=== PATIENT | female | born 1935 | race Caucasian/White ===

== ENCOUNTER 2017-02-07 06:57 | Inpatient (IN) | payer OTHER ==
[~2017-02-07] VITALS: Ht 147.3 cm; Wt 41.5 kg
[~2017-02-07 06:57] MED LIST: BLOOD THINNER PO; CIPR250T27 PO; CLOP75TA PO; METF500T4 PO
[2017-02-07] MEDS ORDERED: SODIUM CHLORIDE 0.9% 1,000 ML IV ONE (07:19)
[2017-02-07] MEDS ORDERED: LORazepam 2 MG/ML, 1ML IVPush ONE (07:30)
[2017-02-07] MEDS ORDERED: SODIUM CHLORIDE FLUSH 10ML SYR IVF ONE (07:30)
[2017-02-07 08:47] LABS: DIFF TOTAL CELLS COUNTED 100 CELL DIFF
[2017-02-07 08:48] LABS: VERIFY COUNTS? YES
[2017-02-07 08:53] LABS: ASPARTATE AMINO TRANSFERASE 14 U/L (15-37); BLOOD UREA NITROGEN 69 mg/dL (7-18); IS PT STATUS REG ER OR PRE ER? YES
[2017-02-07] MEDS ORDERED: OMNIPAQUE 350 MG/ML, 75ML BOTTLE ONE (09:23)
[2017-02-07] MEDS ORDERED: CEFTRIAXONE PMX 1GM/50ML 50 ML ONE (09:27)
[2017-02-07] MEDS ORDERED: CEFTRIAXONE PMX 1GM/50ML 50 ML IV ONE (09:30)
[2017-02-07] MEDS ORDERED: MORPHINE SULFATE 4 MG/ML, 1ML IVPush PRN (11:30)
[2017-02-07] MEDS ORDERED: PROMETHAZINE 25 MG/ML, 1ML IM PRN (11:30)
[2017-02-07] MEDS ORDERED: FAMOTIDINE 20 MG/2 ML IV SCH (11:30)
[2017-02-07] MEDS ORDERED: LORazepam 2 MG/ML, 1ML IVPush PRN (11:30)
[2017-02-07] MEDS ORDERED: ONDANSETRON 2MG/ML, 2ML IVP PRN (11:30)
[2017-02-07] MEDS ORDERED: NS + 20MEQ KCL 1,000 ML IV ONE (12:49)
[2017-02-07] MEDS ORDERED: FAMOTIDINE 20 MG/2 ML ONE (12:49)
[2017-02-07] MEDS: NS + 20MEQ KCL 1,000 ML IV SCH ×2 (13:00→22:25)
[2017-02-07] MEDS: CEFTRIAXONE PMX 1GM/50ML 50 ML IV SCH (15:20)
[2017-02-07 16:27] VITALS: BP 165/85
[2017-02-07] MEDS: FAMOTIDINE 20 MG/2 ML IV SCH ×2 (16:43→21:00)
[2017-02-07] MEDS: INSULIN ASPART 100 UNITS/ML, PEN SQ-INSULIN SCH ×2 (16:46→21:00)
[2017-02-07 16:49] LABS: IS PT STATUS REG ER OR PRE ER? NO
[2017-02-07 19:22] VITALS: BP 163/93
[2017-02-07 22:01] LABS: IS PT STATUS REG ER OR PRE ER? NO
[2017-02-07 22:12] LABS: BLOOD UREA NITROGEN 54 mg/dL (7-18)
[2017-02-08 01:28] VITALS: BP 171/90
[2017-02-08 04:59] LABS: BLOOD UREA NITROGEN 50 mg/dL (7-18)
[2017-02-08] MEDS: INSULIN ASPART 100 UNITS/ML, PEN SQ-INSULIN SCH ×4 (07:00→22:54)
[2017-02-08 08:53] VITALS: BP 173/82
[2017-02-08] MEDS: NS + 20MEQ KCL 1,000 ML IV SCH ×2 (10:08→22:53)
[2017-02-08] MEDS: CEFTRIAXONE PMX 1GM/50ML 50 ML IV SCH (12:41)
[2017-02-08 14:37] VITALS: BP 175/82
[2017-02-08] MEDS ORDERED: LIDOCAINE GEL 2%, 5ML ONE ×2 (15:38→16:50)
[2017-02-08] MEDS ORDERED: BENZOCAINE 20% SPRAY 0.5ML ONE ×2 (15:38→16:50)
[2017-02-08 19:24] VITALS: BP 165/84
[2017-02-08] MEDS: FAMOTIDINE 20 MG/2 ML IV SCH (22:53)
[2017-02-09 01:20] VITALS: BP 174/88
[2017-02-09] MEDS: INSULIN ASPART 100 UNITS/ML, PEN SQ-INSULIN SCH ×4 (04:00→22:00)
[2017-02-09 05:56] LABS: BLOOD UREA NITROGEN 25 mg/dL (7-18)
[2017-02-09 08:31] VITALS: BP 155/73
[2017-02-09] MEDS: NS + 20MEQ KCL 1,000 ML IV SCH ×2 (09:22→22:13)
[2017-02-09] MEDS ORDERED: POTASSIUM CHLORIDE 20 MEQ in SODIUM CHLORIDE 0.9% 250 ML IV ONE (10:00)
[2017-02-09] MEDS: CEFTRIAXONE PMX 1GM/50ML 50 ML IV SCH (11:32)
[2017-02-09 12:54] VITALS: BP 186/77
[2017-02-09 13:09] VITALS: BP 179/86
[2017-02-09] MEDS ORDERED: ENALAPRILAT 1.25 MG/ML, 2ML IV PRN (16:00)
[2017-02-09 19:14] VITALS: BP 166/78
[2017-02-09] MEDS: FAMOTIDINE 20 MG/2 ML IV SCH (22:12)
[2017-02-09] MEDS: HEPARIN 5,000 UNITS/ML, 1ML SQ SCH (22:12)
[2017-02-10] MEDS ORDERED: BISACODYL 10 MG SUPP PR SCH
[2017-02-10 01:49] VITALS: BP 157/76
[2017-02-10] MEDS: INSULIN ASPART 100 UNITS/ML, PEN SQ-INSULIN SCH ×4 (04:00→22:14)
[2017-02-10 05:51] LABS: BLOOD UREA NITROGEN 19 mg/dL (7-18)
[2017-02-10 06:55] VITALS: BP 161/72
[2017-02-10] MEDS ORDERED: ERYTHROMYCIN 250 MG in SODIUM CHLORIDE 0.9% 100 ML IVPB SCH (09:00)
[2017-02-10] MEDS: NS + 20MEQ KCL 1,000 ML IV SCH (09:09)
[2017-02-10] MEDS: HEPARIN 5,000 UNITS/ML, 1ML SQ SCH ×2 (10:18→21:40)
[2017-02-10] MEDS: METOCLOPRAMIDE 5 MG/ML, 2ML IV SCH ×3 (10:19→21:41)
[2017-02-10] MEDS ORDERED: POTASSIUM PHOSPHATE 22 MEQ in SODIUM CHLORIDE 0.9% 500 ML IV ONE (11:30)
[2017-02-10] MEDS ORDERED: MAGNESIUM SULFATE PMX 2GM/50ML 50 ML IV ONE (11:30)
[2017-02-10] MEDS ORDERED: NS + 20MEQ KCL 1,000 ML IV SCH (12:00)
[2017-02-10] MEDS: CEFTRIAXONE PMX 1GM/50ML 50 ML IV SCH (12:59)
[2017-02-10 14:15] VITALS: BP 153/77
[2017-02-10 20:05] VITALS: BP 138/72
[2017-02-10] MEDS: FAMOTIDINE 20 MG/2 ML IV SCH (21:40)
[2017-02-11 01:55] VITALS: BP 140/70
[2017-02-11] MEDS: METOCLOPRAMIDE 5 MG/ML, 2ML IV SCH ×3 (03:17→15:57)
[2017-02-11] MEDS: INSULIN ASPART 100 UNITS/ML, PEN SQ-INSULIN SCH ×4 (04:26→22:05)
[2017-02-11 05:51] LABS: BLOOD UREA NITROGEN 18 mg/dL (7-18)
[2017-02-11 07:45] VITALS: BP 179/84
[2017-02-11] MEDS: HEPARIN 5,000 UNITS/ML, 1ML SQ SCH ×2 (09:51→21:26)
[2017-02-11] MEDS: POLYETHYLENE GLYCOL 17 GM PACKET PO SCH (09:52)
[2017-02-11] MEDS: CEFTRIAXONE PMX 1GM/50ML 50 ML IV SCH (12:10)
[2017-02-11 14:33] VITALS: BP 164/82
[2017-02-11 19:38] VITALS: BP 144/73
[2017-02-11] MEDS ORDERED: METOCLOPRAMIDE 5 MG/ML, 2ML IV PRN (21:00)
[2017-02-11] MEDS: FAMOTIDINE 20 MG/2 ML IV SCH (21:26)
[2017-02-12 02:10] VITALS: BP 114/67
[2017-02-12 07:29] VITALS: BP 141/83
[2017-02-12] MEDS: HEPARIN 5,000 UNITS/ML, 1ML SQ SCH ×2 (08:14→21:05)
[2017-02-12] MEDS: POLYETHYLENE GLYCOL 17 GM PACKET PO SCH (08:14)
[2017-02-12] MEDS: INSULIN ASPART 100 UNITS/ML, PEN SQ-INSULIN SCH ×4 (08:15→21:06)
[2017-02-12] MEDS ORDERED: MIDAZOLAM 1 MG/ML, 2ML ONE (09:45)
[2017-02-12] MEDS ORDERED: FENTANYL PF 250 MCG/5ML ONE (09:45)
[2017-02-12] MEDS: CEFTRIAXONE PMX 1GM/50ML 50 ML IV SCH (11:49)
[2017-02-12 13:44] VITALS: BP 131/79
[2017-02-12 19:44] VITALS: BP 132/75
[2017-02-12] MEDS: FAMOTIDINE 20 MG/2 ML IV SCH (21:05)
[2017-02-13 01:17] VITALS: BP 163/92
[2017-02-13 06:50] VITALS: BP 160/80
[2017-02-13] MEDS: INSULIN ASPART 100 UNITS/ML, PEN SQ-INSULIN SCH ×4 (07:00→20:04)
[2017-02-13] MEDS: POLYETHYLENE GLYCOL 17 GM PACKET PO SCH (08:12)
[2017-02-13 12:27] VITALS: BP 109/72
[2017-02-13] MEDS: HEPARIN 5,000 UNITS/ML, 1ML SQ SCH (13:59)
[2017-02-13] MEDS: SODIUM CHLORIDE 0.9% 1,000 ML IV SCH (18:11)
[2017-02-13 19:03] VITALS: BP 167/72
[2017-02-13] MEDS: FAMOTIDINE 20 MG/2 ML IV SCH (20:04)
[2017-02-14 02:03] VITALS: BP 154/73
[2017-02-14] MEDS: HEPARIN 5,000 UNITS/ML, 1ML SQ SCH ×2 (02:20→14:00)
[2017-02-14] MEDS: SODIUM CHLORIDE 0.9% 1,000 ML IV SCH ×2 (05:00→20:04)
[2017-02-14 06:41] VITALS: BP 127/65
[2017-02-14] MEDS: INSULIN ASPART 100 UNITS/ML, PEN SQ-INSULIN SCH ×4 (07:00→20:04)
[2017-02-14] MEDS: POLYETHYLENE GLYCOL 17 GM PACKET PO SCH (08:26)
[2017-02-14 13:15] VITALS: BP 133/77
[2017-02-14 18:48] VITALS: BP 127/70
[2017-02-14] MEDS: FAMOTIDINE 20 MG/2 ML IV SCH (20:04)
[2017-02-15 03:16] VITALS: BP 119/63
[2017-02-15] MEDS: HEPARIN 5,000 UNITS/ML, 1ML SQ SCH ×2 (04:54→17:00)
[2017-02-15 06:07] LABS: BLOOD UREA NITROGEN 14 mg/dL (7-18)
[2017-02-15] MEDS: INSULIN ASPART 100 UNITS/ML, PEN SQ-INSULIN SCH ×4 (07:00→20:27)
[2017-02-15 07:10] VITALS: BP 126/67
[2017-02-15] MEDS: POLYETHYLENE GLYCOL 17 GM PACKET PO SCH (09:00)
[2017-02-15] MEDS ORDERED: POTASSIUM CHLORIDE 40 MEQ in SODIUM CHLORIDE 0.9% 500 ML IV ONE (09:00)
[2017-02-15] MEDS ORDERED: MAGNESIUM SULFATE PMX 4GM/100M 100 ML IV ONE (09:00)
[2017-02-15] MEDS: SODIUM CHLORIDE 0.9% 1,000 ML IV SCH ×2 (09:09→20:27)
[2017-02-15 15:05] VITALS: BP 119/74
[2017-02-15 19:20] VITALS: BP 129/64
[2017-02-15] MEDS: FAMOTIDINE 20 MG/2 ML IV SCH (20:27)
[2017-02-16 01:37] VITALS: BP 133/67
[2017-02-16] MEDS: HEPARIN 5,000 UNITS/ML, 1ML SQ SCH (04:54)
[2017-02-16 06:05] LABS: BLOOD UREA NITROGEN 12 mg/dL (7-18)
[2017-02-16 06:40] VITALS: BP 138/67
[2017-02-16] MEDS: INSULIN ASPART 100 UNITS/ML, PEN SQ-INSULIN SCH ×2 (07:00→11:38)
[2017-02-16] MEDS: POLYETHYLENE GLYCOL 17 GM PACKET PO SCH (07:58)
[2017-02-16 14:35] VITALS: BP 103/56
== END 2017-02-16 15:29 | DRG 388 ==
LOC: ED 08:32 → EDIP 09:54 → 3NE 14:46
PROVIDERS: ADMIT Internal Medicine; ATTEND Internal Medicine
PROC: 0T9B70Z Drainage of Bladder with Drainage Device, Via Natural or Artificial Opening (ICD-10-PCS; principal; 2017-02-07)
PROC: 0DH67UZ Insertion of Feeding Device into Stomach, Via Natural or Artificial Opening (ICD-10-PCS; 2017-02-08)
DX: K56.60 Unspecified intestinal obstruction (principal); N17.0 Acute kidney failure with tubular necrosis; G93.41 Metabolic encephalopathy; E87.2 Acidosis; Z68.1 Body mass index [BMI] 19.9 or less, adult; R64 Cachexia; N39.0 Urinary tract infection, site not specified; F05 Delirium due to known physiological condition; I24.8 Other forms of acute ischemic heart disease; J68.0 Bronchitis and pneumonitis due to chemicals, gases, fumes and vapors; B96.20 Unspecified Escherichia coli [E. coli] as the cause of diseases classified elsewhere; E11.9 Type 2 diabetes mellitus without complications; E86.0 Dehydration; E87.6 Hypokalemia; F03.90 Unspecified dementia, unspecified severity, without behavioral disturbance, psychotic disturbance, mood disturbance, and anxiety; R47.81 Slurred speech; Z66 Do not resuscitate; Z86.79 Personal history of other diseases of the circulatory system; Z87.891 Personal history of nicotine dependence; Z88.0 Allergy status to penicillin; Z79.84 Long term (current) use of oral hypoglycemic drugs; Z79.899 Other long term (current) drug therapy
CPT/HCPCS: 36415; 71010; 74000; 74177; 74230; 74340; 80048; 80053; 81001; 82962; 83605; 83690; 83735; 84100; 84484; 85025; 87040; 87077; 87086; 87186; 93005; 96361; 96365; 96366; J0696; J1364; J1644; J1815; J2250; J2405; J3010; J3480; Q9967; J2765; J3475; J7030; J7040; J7050; S0028

== ENCOUNTER 2018-05-25 10:05 | Inpatient (IN) | payer MEDICARE, MEDICAID ==
[~2018-05-25] VITALS: Ht 147.3 cm; Wt 40.6 kg
[~2018-05-25 10:05] MED LIST changes: -METF500T4 PO; +METF500T5 PO
[2018-05-25] MEDS ORDERED: SODIUM CHLORIDE 0.9% 1,000 ML IV ONE (10:16)
[2018-05-25] MEDS ORDERED: SODIUM CHLORIDE 0.9% 1,000ML IVBOLUS ONE ×2 (10:30→22:00)
[2018-05-25] MEDS ORDERED: SODIUM CHLORIDE FLUSH 10ML SYR IVF ONE (10:30)
[2018-05-25] MEDS: PROPOFOL 100 ML IV PRN ×2 (10:38→21:34)
[2018-05-25 10:49] LABS: MEAN CORPUSCULAR HEMOGLOBIN 28.1 pg (27.0-34.8); MEAN CORPUSCULAR HGB CONC 32.9 g/dL (32.4-35.8); MEAN CORPUSCULAR VOLUME 85.4 fL (80-100); MEAN PLATELET VOLUME 8.9 fL (7.4-10.4); PLATELET COUNT 585 x10^3/uL (130-400); RED BLOOD COUNT 3.05 x10^6/uL (3.82-5.3); RED CELL DISTRIBUTION WIDTH 15.3 % (9.6-15.2)
[2018-05-25 10:54] LABS: ALANINE AMINOTRANSFERASE 13 U/L (12-78); ALBUMIN 2.7 g/dL (3.4-5.0); ANION GAP 14 mmol/L (5-15); CALCIUM 8.3 mg/dL (8.5-10.1); CHLORIDE 107 mmol/L (98-107)
[2018-05-25 10:59] LABS: ALKALINE PHOSPHATASE 92 U/L (45-117); BILIRUBIN,TOTAL 0.3 mg/dL (0.2-1.0); CREATININE 0.89 mg/dL (0.55-1.02); TOTAL PROTEIN 6.2 g/dL (6.4-8.2)
[2018-05-25] MEDS ORDERED: BISACODYL 10 MG SUPP PR PRN ×2 (11:00→12:00)
[2018-05-25] MEDS ORDERED: LIDOCAINE-MPF 1%, 2ML ENDO PRN (11:00)
[2018-05-25] MEDS ORDERED: SENNA/DOCUSATE TABLET NG PRN (11:00)
[2018-05-25] MEDS ORDERED: LACTULOSE 20 GM/30 ML UDC NG PRN (11:00)
[2018-05-25] MEDS ORDERED: PLEASE ENTER HEIGHT AND WEIGHT MC SCH (11:00)
[2018-05-25] MEDS ORDERED: SENNOSIDES 8.8 MG/5 ML ORAL SOL NG PRN (11:00)
[2018-05-25] MEDS ORDERED: PHARMACY MAY ADJ FOR RENAL FX MC SCH (11:00)
[2018-05-25 11:26] LABS: MD YES
[2018-05-25 11:27] LABS: BANDS%(MANUAL) 6 % (0-7); MONOS#(MANUAL) 1.49 x10^3/uL (0.3-2.7); MONOS% (MANUAL) 9 % (2-9)
[2018-05-25 11:28] LABS: <PLATELET ESTIMATE> INCREASED; <PLT MORPHOLOGY> NORMAL PLT MORPH; ANISOCYTOSIS 1+; LYMPHS% (MANUAL) 3 % (22-44); POLYCHROMASIA 1+; SEG#(MANUAL) 13.61 x10^3/uL (1.8-6.8); SEGS% (MANUAL) 82 % (42-75)
[2018-05-25 11:29] LABS: OVALOCYTES 1+
[2018-05-25] MEDS ORDERED: POLYETHYLENE GLYCOL 17 GM PACKET PO PRN (12:00)
[2018-05-25] MEDS ORDERED: ONDANSETRON 2MG/ML, 2ML IVPush PRN (12:00)
[2018-05-25] MEDS ORDERED: VANCOMYCIN PER PHARMACY MC PRN (12:00)
[2018-05-25] MEDS ORDERED: SODIUM CHLORIDE FLUSH 10ML SYR IVF PRN (12:00)
[2018-05-25] MEDS ORDERED: DOCUSATE 100 MG CAPSULE PO PRN (12:00)
[2018-05-25] MEDS ORDERED: PHARMACOKINETIC MONITORING MC PRN (12:00)
[2018-05-25 12:04] LABS: INTERNATIONAL NORMALIZED RATIO 1.07 (0.93-1.1)
[2018-05-25 12:05] LABS: CULTURE INDICATED? YES; MICROSCOPIC INDICATED
[2018-05-25] MEDS: MEROPENEM 1 GM in SODIUM CHLORIDE 0.9% 100 ML IV SCH ×2 (12:20→21:33)
[2018-05-25] MEDS ORDERED: FAMOTIDINE 20 MG/2 ML ONE (12:27)
[2018-05-25] MEDS: FAMOTIDINE 20 MG/2 ML IVPush SCH ×2 (12:28→21:34)
[2018-05-25] MEDS ORDERED: ETOMIDATE 40 MG/20 ML IVPush ONE (12:30)
[2018-05-25] MEDS ORDERED: SUCCINYLCHOLINE 20 MG/ML, 10ML IVPush ONE (12:30)
[2018-05-25] MEDS ORDERED: VANCOMYCIN 800 MG in SODIUM CHLORIDE 0.9% 100 ML IV ONE (12:30)
[2018-05-25] MEDS ORDERED: SITA50TA PO (13:19)
[2018-05-25] MEDS ORDERED: INSU100V13 SC (13:19)
[2018-05-25] MEDS ORDERED: METF500T5 PO (13:19)
[2018-05-25] MEDS ORDERED: LATA7.5D LEFTEYE (13:19)
[2018-05-25] MEDS ORDERED: MEMA10TA PO (13:19)
[2018-05-25] MEDS ORDERED: SENN-66 PO (13:19)
[2018-05-25] MEDS ORDERED: LISI2.5T PO (13:19)
[2018-05-25] MEDS ORDERED: ATOR-2 PO (13:19)
[2018-05-25 13:47] LABS: TROPONIN I 0.051 ng/mL (0.000-0.045)
[2018-05-25] MEDS ORDERED: SODIUM CHLORIDE 0.9% 1,000 ML IV SCH (15:30)
[2018-05-25] MEDS ORDERED: INSULIN LISPRO 100 UNITS/ML, PEN SQ-INSULIN SCH (16:00)
[2018-05-25] MEDS ORDERED: PROPOFOL 10 MG/ML, 100ML IV ONE (16:04)
[2018-05-25] MEDS ORDERED: SUCCINYLCHOLINE 20 MG/ML, 10ML ONE (16:04)
[2018-05-25] MEDS ORDERED: ETOMIDATE 20 MG/10 ML ONE (16:04)
[2018-05-25] MEDS: INSULIN LISPRO 100 UNITS/ML, PEN SQ-INSULIN SCH ×2 (17:47→23:00)
[2018-05-25] MEDS ORDERED: ENOXAPARIN 40 MG/0.4 ML SQ SCH (18:30)
[2018-05-25] MEDS ORDERED: NOREPINEPHRINE 4 MG in SODIUM CHLORIDE 0.9% 246 ML IV PRN (23:30)
[2018-05-26] VITALS (7 sets, daily range): BP systolic 89–148; BP diastolic 50–91
[2018-05-26 01:56] LABS: CLOSTRIDIUM DIFFICILE ANTIGEN NEGATIVE; CLOSTRIDIUM DIFFICILE TOXIN NEGATIVE (Negative)
[2018-05-26 04:49] LABS: MEAN CORPUSCULAR HEMOGLOBIN 27.1 pg (27.0-34.8); MEAN CORPUSCULAR HGB CONC 31.7 g/dL (32.4-35.8); MEAN CORPUSCULAR VOLUME 85.7 fL (80-100); PLATELET COUNT 402 x10^3/uL (130-400); RED BLOOD COUNT 2.48 x10^6/uL (3.82-5.3); RED CELL DISTRIBUTION WIDTH 15.7 % (9.6-15.2)
[2018-05-26 04:52] LABS: CHLORIDE 122 mmol/L (98-107)
[2018-05-26] MEDS: MEROPENEM 1 GM in SODIUM CHLORIDE 0.9% 100 ML IV SCH ×3 (04:57→21:00)
[2018-05-26] MEDS: INSULIN LISPRO 100 UNITS/ML, PEN SQ-INSULIN SCH ×4 (04:57→23:00)
[2018-05-26 05:00] LABS: ALANINE AMINOTRANSFERASE 12 U/L (12-78); ALBUMIN 1.8 g/dL (3.4-5.0); ALKALINE PHOSPHATASE 53 U/L (45-117); ANION GAP 7 mmol/L (5-15); BILIRUBIN,TOTAL 0.5 mg/dL (0.2-1.0); CALCIUM 6.9 mg/dL (8.5-10.1); CREATININE 0.48 mg/dL (0.55-1.02); TOTAL PROTEIN 4.6 g/dL (6.4-8.2)
[2018-05-26 05:25] LABS: MD YES
[2018-05-26 05:27] LABS: BANDS%(MANUAL) 15 % (0-7); EOS#(MANUAL) 0.19 x10^3/uL (0.0-0.4); EOS% (MANUAL) 2 % (1-7); LYMPH#(MANUAL) 2.42 x10^3/uL (1-3.4); LYMPHS% (MANUAL) 26 % (22-44); MONOS#(MANUAL) 0.84 x10^3/uL (0.3-2.7); MONOS% (MANUAL) 9 % (2-9); NRBC % (MANUAL) 1 % (0-1); SEG#(MANUAL) 4.46 x10^3/uL (1.8-6.8); SEGS% (MANUAL) 48 % (42-75)
[2018-05-26 05:28] LABS: <PLATELET ESTIMATE> ADEQUATE; <PLT MORPHOLOGY> NORMAL PLT MORPH; ANISOCYTOSIS 1+; OVALOCYTES 1+; POLYCHROMASIA 1+
[2018-05-26] MEDS ORDERED: VANCOMYCIN PER PHARMACY MC PRN (05:30)
[2018-05-26] MEDS: PROPOFOL 100 ML IV PRN ×2 (06:46→07:57)
[2018-05-26] MEDS ORDERED: POTASSIUM PHOSPHATE 44 MEQ in SODIUM CHLORIDE 0.9% 500 ML IV ONE (08:00)
[2018-05-26] MEDS ORDERED: MAGNESIUM SULFATE 4 GM in SODIUM CHLORIDE 0.9% 100 ML IV ONE (08:00)
[2018-05-26] MEDS ORDERED: SODIUM CHLORIDE 0.45% 1,000 ML IV SCH (09:00)
[2018-05-26] MEDS: FAMOTIDINE 20 MG/2 ML IVPush SCH ×2 (09:19→20:59)
[2018-05-26] MEDS: VANCOMYCIN 800 MG in SODIUM CHLORIDE 0.9% 100 ML IV SCH (11:27)
[2018-05-26 15:31] LABS: THYROID STIMULATING HORMONE 0.27 mIU/L (0.358-3.740)
[2018-05-26] MEDS ORDERED: ENOXAPARIN 30 MG/0.3 ML SQ SCH (18:30)
[2018-05-27 04:00] VITALS: BP 92/44
[2018-05-27 04:32] LABS: BASOPHILS # (AUTO) 0.06 x10^3/uL (0-0.1); BASOPHILS % (AUTO) 1 % (0-1); EOSINOPHILS # (AUTO) 0.26 x10^3/uL (0-0.4); EOSINOPHILS % (AUTO) 2 % (1-7); LYMPHOCYTES # (AUTO) 1.56 x10^3/uL (1-3.4); LYMPHOCYTES % (AUTO) 14 % (22-44); MD NO; MEAN CORPUSCULAR HGB CONC 32.9 g/dL (32.4-35.8); MEAN CORPUSCULAR VOLUME 85.2 fL (80-100); MEAN PLATELET VOLUME 8.8 fL (7.4-10.4); MONOCYTES # (AUTO) 1.26 x10^3/uL (0.2-0.8); MONOCYTES % (AUTO) 11 % (2-9); NEUTROPHILS % (AUTO) 73 % (42-75); PLATELET COUNT 369 x10^3/uL (130-400); RED BLOOD COUNT 2.79 x10^6/uL (3.82-5.3); RED CELL DISTRIBUTION WIDTH 14.8 % (9.6-15.2)
[2018-05-27 04:43] LABS: ANION GAP 8 mmol/L (5-15); CALCIUM 6.7 mg/dL (8.5-10.1); CHLORIDE 121 mmol/L (98-107); CREATININE 0.45 mg/dL (0.55-1.02)
[2018-05-27] MEDS: INSULIN LISPRO 100 UNITS/ML, PEN SQ-INSULIN SCH ×4 (05:00→21:14)
[2018-05-27] MEDS: PROPOFOL 100 ML IV PRN (05:04)
[2018-05-27] MEDS: MEROPENEM 1 GM in SODIUM CHLORIDE 0.9% 100 ML IV SCH ×3 (05:04→21:12)
[2018-05-27] MEDS: POTASSIUM CHLORIDE 40 MEQ in D5%-0.2% NACL 1,000 ML IV SCH ×2 (08:34→22:17)
[2018-05-27] MEDS: FAMOTIDINE 20 MG/2 ML IVPush SCH ×2 (08:36→21:13)
[2018-05-27] MEDS ORDERED: FUROSEMIDE 20 MG/2 ML IV ONE (09:00)
[2018-05-27] MEDS: VANCOMYCIN 800 MG in SODIUM CHLORIDE 0.9% 100 ML IV SCH (11:05)
[2018-05-27] MEDS: ERGOCALCIFEROL 50,000 UNIT CAPSULE PO SCH (16:35)
[2018-05-27] MEDS: FERROUS SULFATE 325 MG TABLET PO SCH (16:35)
[2018-05-28 04:00] VITALS: BP 114/48
[2018-05-28] MEDS: MEROPENEM 1 GM in SODIUM CHLORIDE 0.9% 100 ML IV SCH ×2 (04:06→12:53)
[2018-05-28] MEDS: INSULIN LISPRO 100 UNITS/ML, PEN SQ-INSULIN SCH ×4 (04:09→21:54)
[2018-05-28 04:39] LABS: MEAN CORPUSCULAR HEMOGLOBIN 27.9 pg (27.0-34.8); MEAN CORPUSCULAR VOLUME 84.5 fL (80-100); MEAN PLATELET VOLUME 8.7 fL (7.4-10.4); PLATELET COUNT 354 x10^3/uL (130-400); RED CELL DISTRIBUTION WIDTH 15.1 % (9.6-15.2)
[2018-05-28 04:46] LABS: ANION GAP 7 mmol/L (5-15); CALCIUM 7.1 mg/dL (8.5-10.1); CHLORIDE 113 mmol/L (98-107); CREATININE 0.43 mg/dL (0.55-1.02); TRIGLYCERIDES 86 mg/dL (50-200)
[2018-05-28 05:53] LABS: BASOPHILS # (AUTO) 0.02 x10^3/uL (0-0.1); BASOPHILS % (AUTO) 0 % (0-1); EOSINOPHILS # (AUTO) 0.42 x10^3/uL (0-0.4); EOSINOPHILS % (AUTO) 3 % (1-7); LYMPHOCYTES # (AUTO) 1.74 x10^3/uL (1-3.4); LYMPHOCYTES % (AUTO) 13 % (22-44); MD SCAN; MONOCYTES # (AUTO) 1.35 x10^3/uL (0.2-0.8); MONOCYTES % (AUTO) 10 % (2-9); NEUTROPHILS # (AUTO) 9.56 x10^3/uL (1.8-6.8); NEUTROPHILS % (AUTO) 73 % (42-75)
[2018-05-28] MEDS: FERROUS SULFATE 325 MG TABLET PO SCH ×2 (09:15→18:02)
[2018-05-28] MEDS: FAMOTIDINE 20 MG/2 ML IVPush SCH ×2 (09:15→21:52)
[2018-05-28] MEDS ORDERED: FENTANYL PF 100 MCG/2ML ONE (10:55)
[2018-05-28] MEDS ORDERED: MIDAZOLAM 1 MG/ML, 2ML ONE (10:55)
[2018-05-28] MEDS ORDERED: FENTANYL PF 100 MCG/2ML IV ONE (11:00)
[2018-05-28] MEDS: VANCOMYCIN 800 MG in SODIUM CHLORIDE 0.9% 100 ML IV SCH (11:39)
[2018-05-28] MEDS ORDERED: MIDAZOLAM 1 MG/ML, 2ML IVPush ONE (12:00)
[2018-05-28] MEDS: POTASSIUM CHLORIDE 40 MEQ in D5%-0.2% NACL 1,000 ML IV SCH (13:55)
[2018-05-28] MEDS: AMPICILLIN/SULBACTAM 3 GM in SODIUM CHLORIDE 0.9% 100 ML IV SCH ×2 (16:11→22:07)
[2018-05-28] MEDS: CEFTRIAXONE 1,000 MG in SODIUM CHLORIDE 0.9% 50 ML IV SCH (16:11)
[2018-05-29] MEDS: AMPICILLIN/SULBACTAM 3 GM in SODIUM CHLORIDE 0.9% 100 ML IV SCH ×4 (02:23→22:30)
[2018-05-29] MEDS: POTASSIUM CHLORIDE 40 MEQ in D5%-0.2% NACL 1,000 ML IV SCH (02:23)
[2018-05-29 04:00] VITALS: BP 124/62
[2018-05-29] MEDS: INSULIN LISPRO 100 UNITS/ML, PEN SQ-INSULIN SCH ×4 (04:24→23:25)
[2018-05-29 04:47] LABS: MEAN CORPUSCULAR HEMOGLOBIN 28.2 pg (27.0-34.8); MEAN CORPUSCULAR HGB CONC 33.3 g/dL (32.4-35.8); MEAN CORPUSCULAR VOLUME 84.8 fL (80-100); MEAN PLATELET VOLUME 8.8 fL (7.4-10.4); PLATELET COUNT 375 x10^3/uL (130-400); RED BLOOD COUNT 3.35 x10^6/uL (3.82-5.3); RED CELL DISTRIBUTION WIDTH 15.5 % (9.6-15.2)
[2018-05-29 04:59] LABS: CHLORIDE 107 mmol/L (98-107)
[2018-05-29 05:03] LABS: ANION GAP 8 mmol/L (5-15); CALCIUM 7.6 mg/dL (8.5-10.1)
[2018-05-29 05:24] LABS: BASOPHILS # (AUTO) 0.05 x10^3/uL (0-0.1); BASOPHILS % (AUTO) 0 % (0-1); EOSINOPHILS # (AUTO) 0.36 x10^3/uL (0-0.4); EOSINOPHILS % (AUTO) 2 % (1-7); LYMPHOCYTES # (AUTO) 1.51 x10^3/uL (1-3.4); LYMPHOCYTES % (AUTO) 9 % (22-44); MD SCAN; MONOCYTES % (AUTO) 11 % (2-9); NEUTROPHILS # (AUTO) 12.44 x10^3/uL (1.8-6.8); NEUTROPHILS % (AUTO) 77 % (42-75)
[2018-05-29] MEDS ORDERED: MAGNESIUM SULFATE PMX 2GM/50ML 50 ML IV ONE ×2 (06:00→07:00)
[2018-05-29] MEDS ORDERED: POTASSIUM PHOSPHATE 44 MEQ in SODIUM CHLORIDE 0.9% 500 ML IV ONE (06:00)
[2018-05-29] MEDS ORDERED: SODIUM PHOSPHATE 20 MMOL in SODIUM CHLORIDE 0.9% 500 ML IV ONE (07:00)
[2018-05-29] MEDS: FAMOTIDINE 20 MG/2 ML IVPush SCH ×2 (08:07→22:25)
[2018-05-29] MEDS: FERROUS SULFATE 325 MG TABLET PO SCH ×2 (08:07→15:00)
[2018-05-29] MEDS: ENOXAPARIN 40 MG/0.4 ML SQ SCH (10:46)
[2018-05-29] MEDS: CEFTRIAXONE 1,000 MG in SODIUM CHLORIDE 0.9% 50 ML IV SCH (15:00)
[2018-05-29] MEDS ORDERED: POTASSIUM CHLORIDE 20 MEQ TAB.ER.PRT ONE (16:15)
[2018-05-30 04:00] VITALS: BP 163/52
[2018-05-30 04:37] LABS: MEAN CORPUSCULAR HEMOGLOBIN 28.2 pg (27.0-34.8); MEAN CORPUSCULAR HGB CONC 33.1 g/dL (32.4-35.8); MEAN CORPUSCULAR VOLUME 85.2 fL (80-100); MEAN PLATELET VOLUME 8.5 fL (7.4-10.4); PLATELET COUNT 387 x10^3/uL (130-400); RED BLOOD COUNT 3.26 x10^6/uL (3.82-5.3)
[2018-05-30 04:53] LABS: CHLORIDE 108 mmol/L (98-107)
[2018-05-30 04:59] LABS: ALANINE AMINOTRANSFERASE 13 U/L (12-78); ALBUMIN 1.7 g/dL (3.4-5.0); ALKALINE PHOSPHATASE 95 U/L (45-117); ANION GAP 6 mmol/L (5-15); BILIRUBIN,TOTAL 0.3 mg/dL (0.2-1.0); CALCIUM 7.5 mg/dL (8.5-10.1); CREATININE 0.46 mg/dL (0.55-1.02); TOTAL PROTEIN 5.3 g/dL (6.4-8.2)
[2018-05-30 05:06] LABS: BASOPHILS # (AUTO) 0.06 x10^3/uL (0-0.1); BASOPHILS % (AUTO) 0 % (0-1); EOSINOPHILS # (AUTO) 0.48 x10^3/uL (0-0.4); EOSINOPHILS % (AUTO) 3 % (1-7); LYMPHOCYTES # (AUTO) 2.15 x10^3/uL (1-3.4); LYMPHOCYTES % (AUTO) 14 % (22-44); MD SCAN; MONOCYTES # (AUTO) 2.05 x10^3/uL (0.2-0.8); MONOCYTES % (AUTO) 13 % (2-9); NEUTROPHILS # (AUTO) 10.85 x10^3/uL (1.8-6.8); NEUTROPHILS % (AUTO) 70 % (42-75)
[2018-05-30] MEDS: AMPICILLIN/SULBACTAM 3 GM in SODIUM CHLORIDE 0.9% 100 ML IV SCH ×4 (05:44→23:12)
[2018-05-30] MEDS: INSULIN LISPRO 100 UNITS/ML, PEN SQ-INSULIN SCH ×4 (05:44→23:13)
[2018-05-30] MEDS: FERROUS SULFATE 325 MG TABLET PO SCH ×2 (08:10→18:06)
[2018-05-30] MEDS: ENOXAPARIN 40 MG/0.4 ML SQ SCH (08:10)
[2018-05-30] MEDS ORDERED: ENALAPRILAT 1.25 MG/ML, 2ML IV PRN (09:00)
[2018-05-30] MEDS ORDERED: hydrALAzine 20 MG/ML, 1ML IV PRN (09:00)
[2018-05-30] MEDS: CEFTRIAXONE 1,000 MG in SODIUM CHLORIDE 0.9% 50 ML IV SCH (14:15)
[2018-05-30] MEDS: FAMOTIDINE 20 MG/2 ML IVPush SCH (23:12)
[2018-05-31 04:00] VITALS: BP 132/59
[2018-05-31 04:31] LABS: MEAN CORPUSCULAR HEMOGLOBIN 28.2 pg (27.0-34.8); MEAN CORPUSCULAR HGB CONC 33.1 g/dL (32.4-35.8); MEAN CORPUSCULAR VOLUME 85.2 fL (80-100); MEAN PLATELET VOLUME 8.2 fL (7.4-10.4); PLATELET COUNT 381 x10^3/uL (130-400); RED BLOOD COUNT 2.97 x10^6/uL (3.82-5.3); RED CELL DISTRIBUTION WIDTH 16.1 % (9.6-15.2)
[2018-05-31] MEDS: INSULIN LISPRO 100 UNITS/ML, PEN SQ-INSULIN SCH ×4 (04:39→22:40)
[2018-05-31] MEDS: AMPICILLIN/SULBACTAM 3 GM in SODIUM CHLORIDE 0.9% 100 ML IV SCH ×4 (04:39→22:38)
[2018-05-31 04:42] LABS: ANION GAP 6 mmol/L (5-15); CHLORIDE 107 mmol/L (98-107); CREATININE 0.45 mg/dL (0.55-1.02); TRIGLYCERIDES 115 mg/dL (50-200)
[2018-05-31 04:43] LABS: CALCIUM 7.7 mg/dL (8.5-10.1)
[2018-05-31 04:49] LABS: BASOPHILS # (AUTO) 0.13 x10^3/uL (0-0.1); BASOPHILS % (AUTO) 1 % (0-1); EOSINOPHILS # (AUTO) 0.56 x10^3/uL (0-0.4); EOSINOPHILS % (AUTO) 4 % (1-7); LYMPHOCYTES # (AUTO) 2.19 x10^3/uL (1-3.4); LYMPHOCYTES % (AUTO) 15 % (22-44); MD SCAN; MONOCYTES # (AUTO) 2.37 x10^3/uL (0.2-0.8); MONOCYTES % (AUTO) 16 % (2-9); NEUTROPHILS % (AUTO) 65 % (42-75)
[2018-05-31] MEDS: FERROUS SULFATE 325 MG TABLET PO SCH ×2 (07:48→18:06)
[2018-05-31] MEDS: ACETAMINOPHEN 325 MG TABLET PO PRN (07:48)
[2018-05-31] MEDS: ENOXAPARIN 40 MG/0.4 ML SQ SCH (07:48)
[2018-05-31] MEDS: CEFTRIAXONE 1,000 MG in SODIUM CHLORIDE 0.9% 50 ML IV SCH (15:41)
[2018-05-31] MEDS: FAMOTIDINE 20 MG/2 ML IVPush SCH (22:39)
[2018-06-01 04:00] VITALS: BP 116/56
[2018-06-01 04:51] LABS: ANION GAP 7 mmol/L (5-15); CALCIUM 7.6 mg/dL (8.5-10.1); CHLORIDE 107 mmol/L (98-107); CREATININE 0.42 mg/dL (0.55-1.02)
[2018-06-01] MEDS: AMPICILLIN/SULBACTAM 3 GM in SODIUM CHLORIDE 0.9% 100 ML IV SCH ×3 (05:10→18:19)
[2018-06-01] MEDS: INSULIN LISPRO 100 UNITS/ML, PEN SQ-INSULIN SCH ×3 (05:10→18:19)
[2018-06-01 06:17] LABS: MEAN CORPUSCULAR HEMOGLOBIN 27.5 pg (27.0-34.8); MEAN CORPUSCULAR HGB CONC 32.7 g/dL (32.4-35.8); MEAN CORPUSCULAR VOLUME 84.2 fL (80-100); MEAN PLATELET VOLUME 7.8 fL (7.4-10.4); PLATELET COUNT 364 x10^3/uL (130-400); RED BLOOD COUNT 2.75 x10^6/uL (3.82-5.3); RED CELL DISTRIBUTION WIDTH 15.8 % (9.6-15.2)
[2018-06-01 07:18] LABS: BASOPHILS # (AUTO) 0.04 x10^3/uL (0-0.1); BASOPHILS % (AUTO) 0 % (0-1); EOSINOPHILS % (AUTO) 4 % (1-7); LYMPHOCYTES # (AUTO) 1.83 x10^3/uL (1-3.4); LYMPHOCYTES % (AUTO) 15 % (22-44); MD SCAN; MONOCYTES # (AUTO) 1.55 x10^3/uL (0.2-0.8); MONOCYTES % (AUTO) 12 % (2-9); NEUTROPHILS # (AUTO) 8.58 x10^3/uL (1.8-6.8); NEUTROPHILS % (AUTO) 69 % (42-75)
[2018-06-01] MEDS: ENOXAPARIN 30 MG/0.3 ML SQ SCH (08:56)
[2018-06-01] MEDS: CLOPIDOGREL 75 MG TABLET PO SCH (08:57)
[2018-06-01] MEDS: FERROUS SULFATE 325 MG TABLET PO SCH ×2 (08:57→18:18)
[2018-06-02] MEDS: AMPICILLIN/SULBACTAM 3 GM in SODIUM CHLORIDE 0.9% 100 ML IV SCH ×5 (00:18→23:50)
[2018-06-02] MEDS: INSULIN LISPRO 100 UNITS/ML, PEN SQ-INSULIN SCH ×5 (00:20→23:57)
[2018-06-02 04:00] VITALS: BP 122/62
[2018-06-02 04:49] LABS: MEAN CORPUSCULAR HEMOGLOBIN 27.6 pg (27.0-34.8); MEAN CORPUSCULAR HGB CONC 32.5 g/dL (32.4-35.8); MEAN CORPUSCULAR VOLUME 84.9 fL (80-100); MEAN PLATELET VOLUME 8.2 fL (7.4-10.4); PLATELET COUNT 383 x10^3/uL (130-400); RED BLOOD COUNT 2.73 x10^6/uL (3.82-5.3); RED CELL DISTRIBUTION WIDTH 16.5 % (9.6-15.2)
[2018-06-02 04:56] LABS: ANION GAP 4 mmol/L (5-15); CALCIUM 7.9 mg/dL (8.5-10.1); CHLORIDE 106 mmol/L (98-107); CREATININE 0.48 mg/dL (0.55-1.02)
[2018-06-02 05:15] LABS: MD YES
[2018-06-02 05:17] LABS: ANISOCYTOSIS 1+; BAND#(MANUAL) 0.13 x10^3/uL; BANDS%(MANUAL) 1 % (0-7); EOS#(MANUAL) 0.25 x10^3/uL (0.0-0.4); EOS% (MANUAL) 2 % (1-7); LYMPH#(MANUAL) 2.25 x10^3/uL (1-3.4); LYMPHS% (MANUAL) 18 % (22-44); MONOS#(MANUAL) 1.13 x10^3/uL (0.3-2.7); MONOS% (MANUAL) 9 % (2-9); POLYCHROMASIA 1+; SEG#(MANUAL) 8.75 x10^3/uL (1.8-6.8); SEGS% (MANUAL) 70 % (42-75)
[2018-06-02 05:18] LABS: <PLATELET ESTIMATE> ADEQUATE; <PLT MORPHOLOGY> NORMAL PLT MORPH; OVALOCYTES 1+
[2018-06-02] MEDS: ENOXAPARIN 30 MG/0.3 ML SQ SCH (08:11)
[2018-06-02] MEDS: FERROUS SULFATE 325 MG TABLET PO SCH ×2 (08:11→16:23)
[2018-06-02] MEDS: CLOPIDOGREL 75 MG TABLET PO SCH (08:11)
[2018-06-02] MEDS ORDERED: MIDAZOLAM 1 MG/ML, 5ML ONE (11:01)
[2018-06-02] MEDS ORDERED: GADOBUTROL 7.5 MMOL/7.5 ML PFS ONE (11:43)
[2018-06-02] MEDS ORDERED: MIDAZOLAM 1 MG/ML, 2ML IVPush PRN (12:30)
[2018-06-03 04:00] VITALS: BP 113/59
[2018-06-03 04:36] LABS: MEAN CORPUSCULAR HEMOGLOBIN 27.5 pg (27.0-34.8); MEAN CORPUSCULAR HGB CONC 32.6 g/dL (32.4-35.8); MEAN CORPUSCULAR VOLUME 84.4 fL (80-100); MEAN PLATELET VOLUME 7.8 fL (7.4-10.4); PLATELET COUNT 298 x10^3/uL (130-400); RED BLOOD COUNT 2.61 x10^6/uL (3.82-5.3); RED CELL DISTRIBUTION WIDTH 16.2 % (9.6-15.2)
[2018-06-03 04:42] LABS: ANION GAP 8 mmol/L (5-15); CALCIUM 7.8 mg/dL (8.5-10.1); CHLORIDE 105 mmol/L (98-107); CREATININE 0.42 mg/dL (0.55-1.02); TRIGLYCERIDES 136 mg/dL (50-200)
[2018-06-03 05:00] LABS: BASOPHILS # (AUTO) 0.05 x10^3/uL (0-0.1); BASOPHILS % (AUTO) 0 % (0-1); EOSINOPHILS # (AUTO) 0.51 x10^3/uL (0-0.4); EOSINOPHILS % (AUTO) 3 % (1-7); LYMPHOCYTES % (AUTO) 15 % (22-44); MD SCAN; MONOCYTES # (AUTO) 1.32 x10^3/uL (0.2-0.8); MONOCYTES % (AUTO) 9 % (2-9); NEUTROPHILS # (AUTO) 11.05 x10^3/uL (1.8-6.8); NEUTROPHILS % (AUTO) 73 % (42-75)
[2018-06-03] MEDS: AMPICILLIN/SULBACTAM 3 GM in SODIUM CHLORIDE 0.9% 100 ML IV SCH (05:36)
[2018-06-03] MEDS: INSULIN LISPRO 100 UNITS/ML, PEN SQ-INSULIN SCH ×3 (05:44→17:23)
[2018-06-03] MEDS: CLOPIDOGREL 75 MG TABLET PO SCH (08:46)
[2018-06-03] MEDS: FERROUS SULFATE 325 MG TABLET PO SCH ×2 (08:46→17:22)
[2018-06-03] MEDS: ENOXAPARIN 30 MG/0.3 ML SQ SCH (08:46)
[2018-06-03] MEDS: PIPERACILLIN/TAZO/PMX 3.375GM 50 ML IV SCH ×3 (08:58→20:35)
[2018-06-03] MEDS: ERGOCALCIFEROL 50,000 UNIT CAPSULE PO SCH (13:17)
[2018-06-04] MEDS: INSULIN LISPRO 100 UNITS/ML, PEN SQ-INSULIN SCH ×4 (00:40→17:12)
[2018-06-04] MEDS: PIPERACILLIN/TAZO/PMX 3.375GM 50 ML IV SCH ×4 (02:57→20:53)
[2018-06-04 04:00] VITALS: BP 116/48
[2018-06-04 05:49] LABS: MEAN CORPUSCULAR HEMOGLOBIN 27.8 pg (27.0-34.8); MEAN CORPUSCULAR HGB CONC 32.9 g/dL (32.4-35.8); MEAN CORPUSCULAR VOLUME 84.3 fL (80-100); MEAN PLATELET VOLUME 7.9 fL (7.4-10.4); PLATELET COUNT 369 x10^3/uL (130-400); RED BLOOD COUNT 2.59 x10^6/uL (3.82-5.3); RED CELL DISTRIBUTION WIDTH 16.9 % (9.6-15.2)
[2018-06-04 05:57] LABS: ANION GAP 8 mmol/L (5-15); CALCIUM 7.9 mg/dL (8.5-10.1); CHLORIDE 104 mmol/L (98-107); CREATININE 0.51 mg/dL (0.55-1.02)
[2018-06-04 06:17] LABS: BASOPHILS # (AUTO) 0.06 x10^3/uL (0-0.1); BASOPHILS % (AUTO) 1 % (0-1); EOSINOPHILS # (AUTO) 0.37 x10^3/uL (0-0.4); EOSINOPHILS % (AUTO) 3 % (1-7); LYMPHOCYTES # (AUTO) 1.68 x10^3/uL (1-3.4); LYMPHOCYTES % (AUTO) 13 % (22-44); MD SCAN; MONOCYTES # (AUTO) 1.17 x10^3/uL (0.2-0.8); MONOCYTES % (AUTO) 9 % (2-9); NEUTROPHILS # (AUTO) 9.95 x10^3/uL (1.8-6.8); NEUTROPHILS % (AUTO) 75 % (42-75)
[2018-06-04 10:21] VITALS: BP 112/49
[2018-06-04] MEDS: FERROUS SULFATE 325 MG TABLET PO SCH ×2 (10:23→17:09)
[2018-06-04] MEDS: ENOXAPARIN 30 MG/0.3 ML SQ SCH (10:23)
[2018-06-04] MEDS: CLOPIDOGREL 75 MG TABLET PO SCH (10:23)
[2018-06-04] MEDS: INSULIN GLARGINE 100 UNITS/ML, PEN SQ-INSULIN SCH ×2 (10:24→21:00)
[2018-06-04 10:37] VITALS: BP 112/54
[2018-06-04 11:30] VITALS: BP 113/50
[2018-06-04 12:05] VITALS: BP 123/50
[2018-06-05] MEDS: INSULIN LISPRO 100 UNITS/ML, PEN SQ-INSULIN SCH ×4 (00:10→20:06)
[2018-06-05] MEDS: PIPERACILLIN/TAZO/PMX 3.375GM 50 ML IV SCH ×4 (03:04→20:46)
[2018-06-05 04:00] VITALS: BP 140/55
[2018-06-05 05:15] LABS: BASOPHILS # (AUTO) 0.05 x10^3/uL (0-0.1); BASOPHILS % (AUTO) 0 % (0-1); EOSINOPHILS # (AUTO) 0.42 x10^3/uL (0-0.4); EOSINOPHILS % (AUTO) 3 % (1-7); LYMPHOCYTES # (AUTO) 1.98 x10^3/uL (1-3.4); LYMPHOCYTES % (AUTO) 15 % (22-44); MD NO; MEAN CORPUSCULAR HEMOGLOBIN 28.3 pg (27.0-34.8); MEAN CORPUSCULAR HGB CONC 33.4 g/dL (32.4-35.8); MEAN CORPUSCULAR VOLUME 84.9 fL (80-100); MEAN PLATELET VOLUME 7.7 fL (7.4-10.4); MONOCYTES # (AUTO) 1.32 x10^3/uL (0.2-0.8); MONOCYTES % (AUTO) 10 % (2-9); NEUTROPHILS # (AUTO) 9.75 x10^3/uL (1.8-6.8); NEUTROPHILS % (AUTO) 72 % (42-75); PLATELET COUNT 374 x10^3/uL (130-400); RED BLOOD COUNT 3.13 x10^6/uL (3.82-5.3); RED CELL DISTRIBUTION WIDTH 16.2 % (9.6-15.2)
[2018-06-05 05:26] LABS: ANION GAP 6 mmol/L (5-15); CALCIUM 8.3 mg/dL (8.5-10.1); CHLORIDE 107 mmol/L (98-107)
[2018-06-05 05:28] LABS: CREATININE 0.55 mg/dL (0.55-1.02)
[2018-06-05] MEDS: CLOPIDOGREL 75 MG TABLET PO SCH (09:17)
[2018-06-05] MEDS: FERROUS SULFATE 325 MG TABLET PO SCH ×2 (09:17→20:03)
[2018-06-05] MEDS: ENOXAPARIN 30 MG/0.3 ML SQ SCH (09:17)
[2018-06-05] MEDS: INSULIN GLARGINE 100 UNITS/ML, PEN SQ-INSULIN SCH ×2 (10:23→20:47)
[2018-06-05] MEDS: FAMOTIDINE 20 MG/2 ML IVPush SCH (20:46)
[2018-06-06] MEDS: INSULIN LISPRO 100 UNITS/ML, PEN SQ-INSULIN SCH ×4 (00:03→17:32)
[2018-06-06] MEDS: PIPERACILLIN/TAZO/PMX 3.375GM 50 ML IV SCH ×4 (03:00→20:30)
[2018-06-06 04:00] VITALS: BP 115/51
[2018-06-06 05:25] LABS: ANION GAP 5 mmol/L (5-15); CALCIUM 8.3 mg/dL (8.5-10.1); CHLORIDE 107 mmol/L (98-107); CREATININE 0.58 mg/dL (0.55-1.02)
[2018-06-06 05:26] LABS: TRIGLYCERIDES 98 mg/dL (50-200)
[2018-06-06 05:27] LABS: BASOPHILS # (AUTO) 0.07 x10^3/uL (0-0.1); BASOPHILS % (AUTO) 1 % (0-1); EOSINOPHILS # (AUTO) 0.22 x10^3/uL (0-0.4); EOSINOPHILS % (AUTO) 1 % (1-7); LYMPHOCYTES # (AUTO) 1.68 x10^3/uL (1-3.4); LYMPHOCYTES % (AUTO) 11 % (22-44); MD NO; MEAN CORPUSCULAR HEMOGLOBIN 28.5 pg (27.0-34.8); MEAN CORPUSCULAR HGB CONC 32.8 g/dL (32.4-35.8); MEAN CORPUSCULAR VOLUME 86.9 fL (80-100); MEAN PLATELET VOLUME 8.1 fL (7.4-10.4); MONOCYTES # (AUTO) 1.25 x10^3/uL (0.2-0.8); MONOCYTES % (AUTO) 8 % (2-9); NEUTROPHILS # (AUTO) 12.75 x10^3/uL (1.8-6.8); NEUTROPHILS % (AUTO) 80 % (42-75); PLATELET COUNT 355 x10^3/uL (130-400); RED BLOOD COUNT 3.22 x10^6/uL (3.82-5.3); RED CELL DISTRIBUTION WIDTH 16.7 % (9.6-15.2)
[2018-06-06] MEDS: CLOPIDOGREL 75 MG TABLET PO SCH (07:56)
[2018-06-06] MEDS: FERROUS SULFATE 325 MG TABLET PO SCH ×2 (07:56→16:26)
[2018-06-06] MEDS: ENOXAPARIN 30 MG/0.3 ML SQ SCH (07:56)
[2018-06-06] MEDS: INSULIN GLARGINE 100 UNITS/ML, PEN SQ-INSULIN SCH ×2 (07:57→20:31)
[2018-06-06] MEDS ORDERED: FUROSEMIDE 20 MG/2 ML ONE (09:09)
[2018-06-06] MEDS ORDERED: FUROSEMIDE 20 MG/2 ML IV ONE (09:30)
[2018-06-06] MEDS: FAMOTIDINE 20 MG/2 ML IVPush SCH (20:30)
[2018-06-07] MEDS: INSULIN LISPRO 100 UNITS/ML, PEN SQ-INSULIN SCH ×4 (00:32→18:21)
[2018-06-07] MEDS: PIPERACILLIN/TAZO/PMX 3.375GM 50 ML IV SCH ×4 (03:35→21:37)
[2018-06-07 04:13] VITALS: BP 136/61
[2018-06-07 04:31] LABS: MEAN CORPUSCULAR HEMOGLOBIN 29.2 pg (27.0-34.8); MEAN CORPUSCULAR HGB CONC 33.7 g/dL (32.4-35.8); MEAN CORPUSCULAR VOLUME 86.6 fL (80-100); MEAN PLATELET VOLUME 7.8 fL (7.4-10.4); PLATELET COUNT 350 x10^3/uL (130-400); RED BLOOD COUNT 3.14 x10^6/uL (3.82-5.3); RED CELL DISTRIBUTION WIDTH 16.8 % (9.6-15.2)
[2018-06-07 04:36] LABS: ANION GAP 8 mmol/L (5-15); CALCIUM 8.2 mg/dL (8.5-10.1); CHLORIDE 106 mmol/L (98-107); CREATININE 0.57 mg/dL (0.55-1.02)
[2018-06-07 04:49] LABS: BASOPHILS # (AUTO) 0.04 x10^3/uL (0-0.1); BASOPHILS % (AUTO) 0 % (0-1); EOSINOPHILS # (AUTO) 0.14 x10^3/uL (0-0.4); EOSINOPHILS % (AUTO) 1 % (1-7); LYMPHOCYTES # (AUTO) 1.68 x10^3/uL (1-3.4); LYMPHOCYTES % (AUTO) 8 % (22-44); MD SCAN; MONOCYTES % (AUTO) 6 % (2-9); NEUTROPHILS # (AUTO) 17.13 x10^3/uL (1.8-6.8); NEUTROPHILS % (AUTO) 84 % (42-75)
[2018-06-07] MEDS: ENOXAPARIN 30 MG/0.3 ML SQ SCH (08:32)
[2018-06-07] MEDS: FERROUS SULFATE 325 MG TABLET PO SCH ×2 (08:35→18:18)
[2018-06-07] MEDS: CLOPIDOGREL 75 MG TABLET PO SCH (08:35)
[2018-06-07] MEDS: INSULIN GLARGINE 100 UNITS/ML, PEN SQ-INSULIN SCH ×2 (08:37→22:04)
[2018-06-07] MEDS: ACETAMINOPHEN 325 MG TABLET PO PRN (21:37)
[2018-06-07] MEDS: FAMOTIDINE 20 MG/2 ML IVPush SCH (21:37)
[2018-06-08] MEDS: INSULIN LISPRO 100 UNITS/ML, PEN SQ-INSULIN SCH ×4 (00:17→17:51)
[2018-06-08] MEDS: PIPERACILLIN/TAZO/PMX 3.375GM 50 ML IV SCH ×4 (03:33→22:34)
[2018-06-08 04:52] LABS: ANION GAP 5 mmol/L (5-15); CALCIUM 8.2 mg/dL (8.5-10.1); CHLORIDE 108 mmol/L (98-107); CREATININE 0.54 mg/dL (0.55-1.02)
[2018-06-08 05:03] LABS: BASOPHILS # (AUTO) 0.08 x10^3/uL (0-0.1); BASOPHILS % (AUTO) 1 % (0-1); EOSINOPHILS # (AUTO) 0.42 x10^3/uL (0-0.4); EOSINOPHILS % (AUTO) 3 % (1-7); LYMPHOCYTES # (AUTO) 1.45 x10^3/uL (1-3.4); LYMPHOCYTES % (AUTO) 11 % (22-44); MD NO; MEAN CORPUSCULAR HGB CONC 32.4 g/dL (32.4-35.8); MEAN CORPUSCULAR VOLUME 86.4 fL (80-100); MEAN PLATELET VOLUME 7.8 fL (7.4-10.4); MONOCYTES % (AUTO) 10 % (2-9); NEUTROPHILS # (AUTO) 10.52 x10^3/uL (1.8-6.8); NEUTROPHILS % (AUTO) 76 % (42-75); PLATELET COUNT 378 x10^3/uL (130-400); RED BLOOD COUNT 3.27 x10^6/uL (3.82-5.3); RED CELL DISTRIBUTION WIDTH 17.7 % (9.6-15.2)
[2018-06-08 06:00] VITALS: BP 132/57
[2018-06-08] MEDS: ENOXAPARIN 30 MG/0.3 ML SQ SCH (08:44)
[2018-06-08] MEDS: FERROUS SULFATE 325 MG TABLET PO SCH ×2 (08:44→17:50)
[2018-06-08] MEDS: CLOPIDOGREL 75 MG TABLET PO SCH (08:45)
[2018-06-08] MEDS: INSULIN GLARGINE 100 UNITS/ML, PEN SQ-INSULIN SCH ×2 (08:45→20:24)
[2018-06-08] MEDS ORDERED: PIPERACILLIN/TAZO/PMX 3.375GM 50 ML IV SCH (11:00)
[2018-06-08] MEDS: ACETAMINOPHEN 325 MG TABLET PO PRN (20:03)
[2018-06-08] MEDS: FAMOTIDINE 20 MG/2 ML IVPush SCH (20:04)
[2018-06-09] MEDS: INSULIN LISPRO 100 UNITS/ML, PEN SQ-INSULIN SCH ×4 (02:00→18:00)
[2018-06-09 04:00] VITALS: BP 139/61
[2018-06-09 04:34] LABS: MEAN CORPUSCULAR HEMOGLOBIN 28.8 pg (27.0-34.8); MEAN CORPUSCULAR HGB CONC 33.3 g/dL (32.4-35.8); MEAN CORPUSCULAR VOLUME 86.4 fL (80-100); MEAN PLATELET VOLUME 7.9 fL (7.4-10.4); PLATELET COUNT 392 x10^3/uL (130-400); RED BLOOD COUNT 3.16 x10^6/uL (3.82-5.3); RED CELL DISTRIBUTION WIDTH 17.5 % (9.6-15.2)
[2018-06-09] MEDS: PIPERACILLIN/TAZO/PMX 3.375GM 50 ML IV SCH ×4 (04:38→22:53)
[2018-06-09 04:45] LABS: CREATININE 0.51 mg/dL (0.55-1.02); TRIGLYCERIDES 99 mg/dL (50-200)
[2018-06-09 04:48] LABS: MD YES
[2018-06-09 04:49] LABS: BAND#(MANUAL) 0.12 x10^3/uL; BANDS%(MANUAL) 1 % (0-7); EOS% (MANUAL) 5 % (1-7); LYMPH#(MANUAL) 2.04 x10^3/uL (1-3.4); LYMPHS% (MANUAL) 17 % (22-44); MONOS#(MANUAL) 0.48 x10^3/uL (0.3-2.7); MONOS% (MANUAL) 4 % (2-9); SEG#(MANUAL) 8.76 x10^3/uL (1.8-6.8); SEGS% (MANUAL) 73 % (42-75)
[2018-06-09 04:50] LABS: <PLATELET ESTIMATE> ADEQUATE; <PLT MORPHOLOGY> NORMAL PLT MORPH; ANISOCYTOSIS 1+
[2018-06-09 05:16] LABS: ANION GAP 5 mmol/L (5-15); CHLORIDE 110 mmol/L (98-107)
[2018-06-09] MEDS: CLOPIDOGREL 75 MG TABLET PO SCH (07:57)
[2018-06-09] MEDS: FERROUS SULFATE 325 MG TABLET PO SCH ×2 (07:57→17:04)
[2018-06-09] MEDS: ENOXAPARIN 30 MG/0.3 ML SQ SCH (07:57)
[2018-06-09] MEDS: INSULIN GLARGINE 100 UNITS/ML, PEN SQ-INSULIN SCH (08:00)
[2018-06-09 13:54] VITALS: BP 127/63
[2018-06-09 14:04] VITALS: BP 134/63
[2018-06-09] MEDS: metFORMIN 500 MG TABLET PO SCH (17:00)
[2018-06-09] MEDS: FAMOTIDINE 20 MG/2 ML IVPush SCH (21:13)
[2018-06-09 21:21] VITALS: BP 150/72
[2018-06-10 00:42] VITALS: BP 167/82
[2018-06-10] MEDS: INSULIN LISPRO 100 UNITS/ML, PEN SQ-INSULIN SCH ×4 (01:47→17:53)
[2018-06-10 05:10] LABS: MEAN CORPUSCULAR HEMOGLOBIN 28.5 pg (27.0-34.8); MEAN CORPUSCULAR HGB CONC 33.1 g/dL (32.4-35.8); MEAN CORPUSCULAR VOLUME 86.3 fL (80-100); PLATELET COUNT 407 x10^3/uL (130-400); RED BLOOD COUNT 3.35 x10^6/uL (3.82-5.3); RED CELL DISTRIBUTION WIDTH 17.2 % (9.6-15.2)
[2018-06-10 05:21] LABS: ANION GAP 8 mmol/L (5-15); CALCIUM 8.3 mg/dL (8.5-10.1); CHLORIDE 107 mmol/L (98-107)
[2018-06-10 05:23] LABS: CREATININE 0.59 mg/dL (0.55-1.02)
[2018-06-10] MEDS: PIPERACILLIN/TAZO/PMX 3.375GM 50 ML IV SCH ×4 (05:45→23:55)
[2018-06-10 05:51] LABS: BASOPHILS # (AUTO) 0.14 x10^3/uL (0-0.1); BASOPHILS % (AUTO) 1 % (0-1); EOSINOPHILS # (AUTO) 0.26 x10^3/uL (0-0.4); EOSINOPHILS % (AUTO) 2 % (1-7); LYMPHOCYTES # (AUTO) 1.34 x10^3/uL (1-3.4); LYMPHOCYTES % (AUTO) 12 % (22-44); MD SCAN; MONOCYTES % (AUTO) 13 % (2-9); NEUTROPHILS # (AUTO) 8.28 x10^3/uL (1.8-6.8); NEUTROPHILS % (AUTO) 72 % (42-75)
[2018-06-10 07:04] VITALS: BP 137/68
[2018-06-10] MEDS: FERROUS SULFATE 325 MG TABLET PO SCH (08:00)
[2018-06-10] MEDS: metFORMIN 500 MG TABLET PO SCH ×2 (09:12→17:53)
[2018-06-10] MEDS: ENOXAPARIN 30 MG/0.3 ML SQ SCH (09:12)
[2018-06-10] MEDS: CLOPIDOGREL 75 MG TABLET PO SCH (09:12)
[2018-06-10] MEDS: FERROUS SULFATE 220 MG/5 ML ORAL SOL PO SCH ×2 (10:02→17:53)
[2018-06-10 12:16] VITALS: BP 143/71
[2018-06-10] MEDS: ERGOCALCIFEROL 50,000 UNIT CAPSULE PO SCH (14:09)
[2018-06-10] MEDS: LISINOPRIL 5 MG TABLET PO SCH (14:10)
[2018-06-10 20:00] VITALS: BP 126/69
[2018-06-11] MEDS: INSULIN LISPRO 100 UNITS/ML, PEN SQ-INSULIN SCH ×4 (00:13→17:29)
[2018-06-11 02:00] VITALS: BP 134/73
[2018-06-11 05:41] LABS: O2 FLOW 4 L/min
[2018-06-11] MEDS: PIPERACILLIN/TAZO/PMX 3.375GM 50 ML IV SCH ×3 (05:42→17:41)
[2018-06-11 05:44] LABS: BASOPHILS # (AUTO) 0.11 x10^3/uL (0-0.1); BASOPHILS % (AUTO) 1 % (0-1); EOSINOPHILS # (AUTO) 0.28 x10^3/uL (0-0.4); EOSINOPHILS % (AUTO) 3 % (1-7); LYMPHOCYTES # (AUTO) 1.66 x10^3/uL (1-3.4); LYMPHOCYTES % (AUTO) 15 % (22-44); MD NO; MEAN CORPUSCULAR HEMOGLOBIN 28.4 pg (27.0-34.8); MEAN CORPUSCULAR HGB CONC 32.9 g/dL (32.4-35.8); MEAN CORPUSCULAR VOLUME 86.2 fL (80-100); MONOCYTES # (AUTO) 1.22 x10^3/uL (0.2-0.8); MONOCYTES % (AUTO) 11 % (2-9); NEUTROPHILS # (AUTO) 7.77 x10^3/uL (1.8-6.8); NEUTROPHILS % (AUTO) 70 % (42-75); PLATELET COUNT 460 x10^3/uL (130-400); RED BLOOD COUNT 3.57 x10^6/uL (3.82-5.3); RED CELL DISTRIBUTION WIDTH 17.8 % (9.6-15.2)
[2018-06-11 05:53] LABS: ANION GAP 8 mmol/L (5-15); CALCIUM 8.6 mg/dL (8.5-10.1); CHLORIDE 108 mmol/L (98-107); CREATININE 0.59 mg/dL (0.55-1.02)
[2018-06-11 08:00] VITALS: BP 129/78
[2018-06-11] MEDS: LISINOPRIL 5 MG TABLET PO SCH (09:00)
[2018-06-11] MEDS: metFORMIN 500 MG TABLET PO SCH ×2 (09:55→17:27)
[2018-06-11] MEDS: CLOPIDOGREL 75 MG TABLET PO SCH (09:55)
[2018-06-11] MEDS: ENOXAPARIN 30 MG/0.3 ML SQ SCH (09:56)
[2018-06-11] MEDS: FERROUS SULFATE 220 MG/5 ML ORAL SOL PO SCH ×2 (09:56→17:26)
[2018-06-11 09:58] VITALS: BP 102/54
[2018-06-11 13:29] VITALS: BP 102/65
[2018-06-11 18:48] VITALS: BP 142/76
[2018-06-11] MEDS ORDERED: TEMPLATE NON-FORMULARY MED. (Latanoprost/Pf (Latanoprost 0.005% Eye Drop) 1 DROP) LEFTEYE SCH (21:00)
[2018-06-11] MEDS: MEMANTINE 10MG TABLET PO SCH (21:39)
[2018-06-11] MEDS: LATANOPROST OPHTH 0.005%, 2.5ML LEFTEYE SCH (21:40)
[2018-06-12] MEDS: PIPERACILLIN/TAZO/PMX 3.375GM 50 ML IV SCH ×4 (00:08→18:16)
[2018-06-12] MEDS: INSULIN LISPRO 100 UNITS/ML, PEN SQ-INSULIN SCH ×4 (00:21→18:10)
[2018-06-12 01:18] VITALS: BP 142/79
[2018-06-12 05:43] LABS: BASOPHILS # (AUTO) 0.06 x10^3/uL (0-0.1); BASOPHILS % (AUTO) 1 % (0-1); EOSINOPHILS % (AUTO) 3 % (1-7); LYMPHOCYTES % (AUTO) 15 % (22-44); MD NO; MEAN CORPUSCULAR HEMOGLOBIN 28.2 pg (27.0-34.8); MEAN CORPUSCULAR HGB CONC 32.8 g/dL (32.4-35.8); MEAN CORPUSCULAR VOLUME 86.2 fL (80-100); MONOCYTES # (AUTO) 1.31 x10^3/uL (0.2-0.8); MONOCYTES % (AUTO) 13 % (2-9); NEUTROPHILS # (AUTO) 7.14 x10^3/uL (1.8-6.8); NEUTROPHILS % (AUTO) 69 % (42-75); PLATELET COUNT 400 x10^3/uL (130-400); RED BLOOD COUNT 3.28 x10^6/uL (3.82-5.3)
[2018-06-12 05:51] LABS: CHLORIDE 106 mmol/L (98-107)
[2018-06-12 05:57] LABS: ANION GAP 8 mmol/L (5-15); CALCIUM 8.3 mg/dL (8.5-10.1); CREATININE 0.55 mg/dL (0.55-1.02); TRIGLYCERIDES 135 mg/dL (50-200)
[2018-06-12 07:20] VITALS: BP 129/63
[2018-06-12] MEDS: LISINOPRIL 5 MG TABLET PO SCH (09:00)
[2018-06-12] MEDS: ENOXAPARIN 30 MG/0.3 ML SQ SCH (11:41)
[2018-06-12] MEDS: CLOPIDOGREL 75 MG TABLET PO SCH (11:41)
[2018-06-12] MEDS: metFORMIN 500 MG TABLET PO SCH ×2 (11:41→18:16)
[2018-06-12] MEDS: MEMANTINE 10MG TABLET PO SCH ×2 (11:41→20:22)
[2018-06-12] MEDS: FERROUS SULFATE 220 MG/5 ML ORAL SOL PO SCH ×2 (11:42→18:16)
[2018-06-12 12:57] VITALS: BP 115/64
[2018-06-12] MEDS: LATANOPROST OPHTH 0.005%, 2.5ML LEFTEYE SCH (20:22)
[2018-06-12 20:34] VITALS: BP 141/73
[2018-06-13] MEDS: PIPERACILLIN/TAZO/PMX 3.375GM 50 ML IV SCH ×4 (00:19→18:05)
[2018-06-13 00:32] VITALS: BP 147/64
[2018-06-13] MEDS: INSULIN LISPRO 100 UNITS/ML, PEN SQ-INSULIN SCH ×4 (05:50→18:05)
[2018-06-13 06:11] LABS: ANION GAP 6 mmol/L (5-15); CALCIUM 8.5 mg/dL (8.5-10.1); CHLORIDE 107 mmol/L (98-107); CREATININE 0.53 mg/dL (0.55-1.02)
[2018-06-13 06:23] LABS: BASOPHILS # (AUTO) 0.12 x10^3/uL (0-0.1); BASOPHILS % (AUTO) 1 % (0-1); EOSINOPHILS # (AUTO) 0.39 x10^3/uL (0-0.4); EOSINOPHILS % (AUTO) 4 % (1-7); LYMPHOCYTES # (AUTO) 1.68 x10^3/uL (1-3.4); LYMPHOCYTES % (AUTO) 16 % (22-44); MD NO; MEAN CORPUSCULAR HGB CONC 32.5 g/dL (32.4-35.8); MEAN CORPUSCULAR VOLUME 86.3 fL (80-100); MEAN PLATELET VOLUME 7.9 fL (7.4-10.4); MONOCYTES # (AUTO) 1.29 x10^3/uL (0.2-0.8); MONOCYTES % (AUTO) 13 % (2-9); NEUTROPHILS # (AUTO) 6.74 x10^3/uL (1.8-6.8); NEUTROPHILS % (AUTO) 66 % (42-75); PLATELET COUNT 499 x10^3/uL (130-400); RED BLOOD COUNT 3.42 x10^6/uL (3.82-5.3); RED CELL DISTRIBUTION WIDTH 17.7 % (9.6-15.2)
[2018-06-13 07:20] VITALS: BP 132/70
[2018-06-13] MEDS: ENOXAPARIN 30 MG/0.3 ML SQ SCH (09:03)
[2018-06-13] MEDS: LISINOPRIL 5 MG TABLET PO SCH (09:07)
[2018-06-13] MEDS: CLOPIDOGREL 75 MG TABLET PO SCH (09:08)
[2018-06-13] MEDS: MEMANTINE 10MG TABLET PO SCH ×2 (09:08→21:02)
[2018-06-13] MEDS: metFORMIN 500 MG TABLET PO SCH ×2 (09:10→16:56)
[2018-06-13] MEDS: FERROUS SULFATE 220 MG/5 ML ORAL SOL PO SCH ×2 (09:18→16:56)
[2018-06-13 15:35] VITALS: BP 137/68
[2018-06-13 19:19] VITALS: BP 139/66
[2018-06-13] MEDS: LATANOPROST OPHTH 0.005%, 2.5ML LEFTEYE SCH (21:01)
[2018-06-14] MEDS: PIPERACILLIN/TAZO/PMX 3.375GM 50 ML IV SCH ×4 (00:25→18:32)
[2018-06-14] MEDS: INSULIN LISPRO 100 UNITS/ML, PEN SQ-INSULIN SCH ×4 (00:27→18:00)
[2018-06-14 02:57] VITALS: BP 119/57
[2018-06-14 06:06] LABS: BASOPHILS # (AUTO) 0.09 x10^3/uL (0-0.1); BASOPHILS % (AUTO) 1 % (0-1); EOSINOPHILS # (AUTO) 0.42 x10^3/uL (0-0.4); EOSINOPHILS % (AUTO) 4 % (1-7); LYMPHOCYTES # (AUTO) 1.46 x10^3/uL (1-3.4); LYMPHOCYTES % (AUTO) 15 % (22-44); MD NO; MEAN CORPUSCULAR HEMOGLOBIN 28.3 pg (27.0-34.8); MEAN CORPUSCULAR VOLUME 85.8 fL (80-100); MEAN PLATELET VOLUME 8.2 fL (7.4-10.4); MONOCYTES # (AUTO) 1.41 x10^3/uL (0.2-0.8); MONOCYTES % (AUTO) 15 % (2-9); NEUTROPHILS # (AUTO) 6.19 x10^3/uL (1.8-6.8); NEUTROPHILS % (AUTO) 65 % (42-75); PLATELET COUNT 533 x10^3/uL (130-400); RED BLOOD COUNT 3.56 x10^6/uL (3.82-5.3); RED CELL DISTRIBUTION WIDTH 16.9 % (9.6-15.2)
[2018-06-14 06:10] LABS: CHLORIDE 105 mmol/L (98-107)
[2018-06-14 06:17] LABS: ALANINE AMINOTRANSFERASE 19 U/L (12-78); ALBUMIN 2.3 g/dL (3.4-5.0); ALKALINE PHOSPHATASE 103 U/L (45-117); ANION GAP 10 mmol/L (5-15); BILIRUBIN,TOTAL 0.3 mg/dL (0.2-1.0); CALCIUM 8.3 mg/dL (8.5-10.1); CREATININE 0.57 mg/dL (0.55-1.02); TOTAL PROTEIN 6.9 g/dL (6.4-8.2)
[2018-06-14 07:29] VITALS: BP 116/62
[2018-06-14] MEDS: FERROUS SULFATE 220 MG/5 ML ORAL SOL PO SCH ×2 (08:00→17:00)
[2018-06-14 10:47] VITALS: BP 111/61
[2018-06-14] MEDS: metFORMIN 500 MG TABLET PO SCH ×2 (10:48→18:32)
[2018-06-14] MEDS: MEMANTINE 10MG TABLET PO SCH ×2 (10:48→21:52)
[2018-06-14] MEDS: LISINOPRIL 5 MG TABLET PO SCH (10:49)
[2018-06-14] MEDS: CLOPIDOGREL 75 MG TABLET PO SCH (10:49)
[2018-06-14] MEDS: ENOXAPARIN 30 MG/0.3 ML SQ SCH (10:49)
[2018-06-14 13:47] VITALS: BP 138/76
[2018-06-14 19:20] VITALS: BP 146/71
[2018-06-14] MEDS: LATANOPROST OPHTH 0.005%, 2.5ML LEFTEYE SCH (21:52)
[2018-06-15] MEDS: PIPERACILLIN/TAZO/PMX 3.375GM 50 ML IV SCH ×4 (00:27→17:53)
[2018-06-15] MEDS: INSULIN LISPRO 100 UNITS/ML, PEN SQ-INSULIN SCH ×4 (00:28→17:53)
[2018-06-15 01:26] VITALS: BP 144/64
[2018-06-15 05:25] LABS: BASOPHILS # (AUTO) 0.11 x10^3/uL (0-0.1); BASOPHILS % (AUTO) 1 % (0-1); EOSINOPHILS % (AUTO) 4 % (1-7); LYMPHOCYTES # (AUTO) 1.46 x10^3/uL (1-3.4); LYMPHOCYTES % (AUTO) 14 % (22-44); MD NO; MEAN CORPUSCULAR HEMOGLOBIN 28.4 pg (27.0-34.8); MEAN CORPUSCULAR VOLUME 85.9 fL (80-100); MEAN PLATELET VOLUME 8.3 fL (7.4-10.4); MONOCYTES % (AUTO) 13 % (2-9); NEUTROPHILS # (AUTO) 7.16 x10^3/uL (1.8-6.8); NEUTROPHILS % (AUTO) 69 % (42-75); PLATELET COUNT 560 x10^3/uL (130-400); RED BLOOD COUNT 3.69 x10^6/uL (3.82-5.3); RED CELL DISTRIBUTION WIDTH 16.9 % (9.6-15.2)
[2018-06-15 05:27] LABS: ANION GAP 8 mmol/L (5-15); CHLORIDE 106 mmol/L (98-107)
[2018-06-15 05:29] LABS: CALCIUM 8.7 mg/dL (8.5-10.1); CREATININE 0.64 mg/dL (0.55-1.02); TRIGLYCERIDES 117 mg/dL (50-200)
[2018-06-15 07:34] VITALS: BP 126/67
[2018-06-15] MEDS: MEMANTINE 10MG TABLET PO SCH (10:13)
[2018-06-15] MEDS: LISINOPRIL 5 MG TABLET PO SCH (10:13)
[2018-06-15] MEDS: CLOPIDOGREL 75 MG TABLET PO SCH (10:13)
[2018-06-15] MEDS: metFORMIN 500 MG TABLET PO SCH ×2 (10:13→17:59)
[2018-06-15] MEDS: ENOXAPARIN 30 MG/0.3 ML SQ SCH (10:14)
[2018-06-15] MEDS: FERROUS SULFATE 220 MG/5 ML ORAL SOL PO SCH ×2 (10:14→18:00)
[2018-06-15] MEDS ORDERED: FERR220S6 PO (10:15)
[2018-06-15] MEDS ORDERED: METF500T PO (10:15)
[2018-06-15] MEDS ORDERED: ERGO500017 PO (10:15)
[2018-06-15] MEDS ORDERED: MEMA10TA20 PO (10:15)
[2018-06-15] MEDS ORDERED: LATA2.5D3 LEFTEYE (10:15)
[2018-06-15] MEDS ORDERED: LISI5TAB7 PO (10:15)
[2018-06-15] MEDS ORDERED: CLOP75TA PO (10:15)
[2018-06-15 14:05] VITALS: BP 124/67
== END 2018-06-15 18:15 | DRG 870 ==
LOC: ED 11:25 → EDIP 11:34 → CCU 14:05 → 4WST 06-09 13:34
PROVIDERS: ADMIT Hospitalist; ATTEND Hospitalist
PROC: 5A1955Z Respiratory Ventilation, Greater than 96 Consecutive Hours (ICD-10-PCS; principal; 2018-05-25)
PROC: 0BH17EZ Insertion of Endotracheal Airway into Trachea, Via Natural or Artificial Opening (ICD-10-PCS; 2018-05-25)
PROC: 30233N1 Transfusion of Nonautologous Red Blood Cells into Peripheral Vein, Percutaneous Approach (ICD-10-PCS; 2018-05-25)
PROC: 0T9B70Z Drainage of Bladder with Drainage Device, Via Natural or Artificial Opening (ICD-10-PCS; 2018-05-25)
PROC: 0B938ZZ Drainage of Right Main Bronchus, Via Natural or Artificial Opening Endoscopic (ICD-10-PCS; 2018-05-28)
DX: A41.9 Sepsis, unspecified organism (principal); J69.0 Pneumonitis due to inhalation of food and vomit; J96.01 Acute respiratory failure with hypoxia; E43 Unspecified severe protein-calorie malnutrition; G93.41 Metabolic encephalopathy; D62 Acute posthemorrhagic anemia; E87.0 Hyperosmolality and hypernatremia; N39.0 Urinary tract infection, site not specified; Z68.1 Body mass index [BMI] 19.9 or less, adult; Z99.11 Dependence on respirator [ventilator] status; F03.90 Unspecified dementia, unspecified severity, without behavioral disturbance, psychotic disturbance, mood disturbance, and anxiety; B95.2 Enterococcus as the cause of diseases classified elsewhere; E11.65 Type 2 diabetes mellitus with hyperglycemia; E55.9 Vitamin D deficiency, unspecified; E87.8 Other disorders of electrolyte and fluid balance, not elsewhere classified; R13.10 Dysphagia, unspecified; Z51.5 Encounter for palliative care; Z66 Do not resuscitate; Z86.73 Personal history of transient ischemic attack (TIA), and cerebral infarction without residual deficits; Z79.02 Long term (current) use of antithrombotics/antiplatelets; Z79.4 Long term (current) use of insulin; Z88.0 Allergy status to penicillin; Z93.1 Gastrostomy status
CPT/HCPCS: 31500; 31624; 36415; 36430; 36600; 51702; 70450; 70553; 71045; 80048; 80053; 80202; 81001; 82306; 82550; 82728; 82803; 82962; 83540; 83550; 83605; 83735; 83880; 83970; 84100; 84145; 84443; 84478; 84484; 85014; 85018; 85025; 85610; 85730; 86850; 86900; 86923; 87040; 87070; 87077; 87081; 87086; 87186; 87205; 87324; 93005; 93306; 94002; 94003; 94150; 96361; 96365; A9585; J0295; J0696; J1650; J2185; J2250; J2543; J2704; J3010; J3370; J3475; J3480; J0330; J1815; J1940; J7030; J7040; J7050; P9016; S0028